=== PATIENT | female | born 1990 | race African-American/Black ===

== ENCOUNTER 2019-02-13 09:22 | Emergency (ER) | payer OTHER, SELFPAY ==
[2019-02-13 09:25] VITALS: BP 113/68; PULSE 66; RESP 13; TEMP 36.9; O2SAT 100
[2019-02-13 10:46] LABS: Add Manual Diff / Slide Review NO; Basophils Absolute Auto 0 /uL (0-100); Basophils Percent Auto 0.6 % (0-2); Eosinophils Absolute Auto 100 /uL (0-450); Eosinophils Percent Auto 1.3 % (2-4); Hematocrit 39.5 % (36-46); Hemoglobin 13.4 g/dL (12.0-16.0); Lymphocytes Absolute Auto 1800 /uL (1100-4500); Lymphocytes Percent Auto 26.9 % (25-40); Mean Corpuscular HGB Conc 33.9 % (30-36); Mean Corpuscular Hemoglobin 29.1 PG (26-34); Monocytes Absolute Auto 300 /uL (0-900); Monocytes Percent Auto 4.7 % (3-14); Neutrophils Absolute Auto 4500 /uL (1500-7000); Neutrophils Percent Auto 66.5 % (50-75); Platelet Count 247 X10^3/uL (150-400); Red Blood Cell Count 4.59 X10^6/uL (4.0-5.2); White Blood Cell Count 6.7 X10^3/uL (4.5-11.0)
--- NOTE | 2019-02-13 10:52 | ED_ITS ---
HPI - Anxiety General Chief Complaint: Anxiety Stated Complaint: mental issues Time Seen by Provider: 02/13/19 10:52 Source: patient Mode of arrival: ambulatory Limitations: no limitations History of Present Illness HPI narrative: Patient is a 28-year-old female who presents to her [facility] with anxiety. She says she really even been able to functions since December she has been to the doctor every week for the last 1 month for UTI and off fibroids. She is overwhelmed unable to sleep at night. Last night she had thoughts of hurting herself. No real specific plan she just can't stop thinking about it. She has those thoughts this morning as well but actively denies suicidal thoughts. She says she was on depression medication however she stopped taking it. She was seeing a counselor but did not think it was helping. MD complaint: anxiety Severity: moderate Related Data Home Medications Medication Instructions Recorded Confirmed ciprofloxacin HCl 500 mg PO [id number] 02/13/19 02/13/19 diphenoxylate-atropine 1 tab PO QID PRN 02/13/19 02/13/19 metronidazole 500 mg PO BID 02/13/19 02/13/19 ondansetron 4 mg PO Q6H PRN 02/13/19 02/13/19 Previous Rx's Medication Instructions Recorded lorazepam [Ativan] 1 mg SL BEDTIME PRN #2 tab 02/13/19 Review of Systems Review of Systems Narrative: GENERAL: Denies chills, fatigue, malaise, fever, sweats, travel HEENT: Denies sinus pain, ear pain, sore throat, difficulty swallowing, neck pain RESPIRATORY: Denies dyspnea, cough, wheezing, hemoptysis, sputum. CARDIOVASCULAR: Denies chest pain, palpitations, orthopnea, edema GASTROINTESTINAL: Denies nausea, vomiting, abdominal pain, diarrhea, constipation, melena. : Denies dysuria, frequency, incontinence, hematuria, urinary retention, flank pain. MUSCULOSKELETAL: Denies weakness, joint pain, or bony pain SKIN: No rash, no erythema, no pruritus NEUROLOGIC: Denies weakness, dizziness, headache, numbness, change in speech, confusion PSYCHIATRIC: See HPI 12 point review of systems is negative except for those stated above and HPI PFSH Medical History Depression (Acute) Social History (Updated 02/13/19 @ 11:16 by Bea Guzman DO) marital status: Social History marital status: Exam Initial Vital Signs Initial Vital Signs: Vital Signs Temperature 98.5 F 02/13/19 09:25 Pulse Rate 66 02/13/19 09:25 Respiratory Rate 13 02/13/19 09:25 Blood Pressure 113/68 02/13/19 09:25 Pulse Oximetry 100 02/13/19 09:25 GENERAL: Tearful slow to respond clear speech and in no acute distress. HEENT: Head atraumatic,EOMI, pupils reactive, CARDIOVASCULAR: Regular rate and rhythm without murmurs, rubs or gallops. RESPIRATORY: Breath sounds equal bilaterally, no wheezes rales or rhonchi. EXTREMITIES: Normal range of motion, no clubbing or edema. Neurovascularly intact NEUROLOGICAL: Alert and oriented x4.Normal gait and speech. Cranial nerves II through XII grossly intact. SKIN: Warm, dry, no laceration, no petechiae, no rashes or lesions. Course Orders Ordered: ED Orders 02/13/19 09:55 EKG-12 Lead Stat 02/13/19 10:00 Urine Drug Screen, Rapid Stat 02/13/19 10:38 Acetaminophen Stat Complete Blood Count AUTO DIFF Stat Comprehensive Metabolic Panel Stat Ethanol (ETOH) Stat 02/13/19 11:19 Consult to [facility] Stat Discontinued Medications Lorazepam (Ativan) 0.5 mg PO NOW ONE Stop: 02/13/19 11:50 Last Admin: 02/13/19 11:58 Dose: 0.5 mg Documented by: BTONER Vital Signs Vital signs: Vital Signs - 8 hr 02/13/19 09:25 02/13/19 12:23 Temperature 98.5 F Pulse Rate 66 72 Respiratory Rate 13 14 Blood Pressure 113/68 Blood Pressure [Left Arm] 106/74 Pulse Oximetry 100 100 MDM - Anxiety Lab Data Attestation: I reviewed the patient's lab results. Result diagrams: 02/13/19 10:38 02/13/19 10:38 Labs: Lab Results 02/13/19 02/13/19 02/13/19 Range/Units 10:00 10:38 10:38 WBC 6.7 (4.5-11.0) X10^3/uL RBC 4.59 (4.0-5.2) X10^6/uL Hgb 13.4 (12.0-16.0) g/dL Hct 39.5 (36-46) % MCV 86.0 (80-100) fL MCH 29.1 (26-34) PG MCHC 33.9 (30-36) % RDW 13.0 (11.6-14.8) % Plt Count 247 (150-400) X10^3/uL Neut % (Auto) 66.5 (50-75) % Lymph % (Auto) 26.9 (25-40) % Shannon % (Auto) 4.7 (3-14) % Eos % (Auto) 1.3 L (2-4) % Baso % (Auto) 0.6 (0-2) % Neut # (Auto) 4500 (6228-7141) /uL Lymph # (Auto) 1800 (7953-9909) /uL Shannon # (Auto) 300 (0-900) /uL Eos # (Auto) 100 (0-450) /uL Baso # (Auto) 0 (0-100) /uL Sodium 139 (137-145) mmol/L Potassium 4.0 (3.4-5.1) mmol/L Chloride 104 (98-107) mmol/L Carbon Dioxide 24 (22-32) mmol/L BUN 13 (7-17) mg/dL Creatinine 0.70 (0.52-1.04) mg/dL Estimated GFR > 60.0 (>60) mL/min BUN/Creatinine Ratio 18.6 (6-22) Glucose 91 (70-100) mg/dL Calcium 9.4 (8.4-10.2) mg/dL Total Bilirubin 0.7 (0.2-1.3) mg/dL AST 22 (14-36) IU/L ALT 18 (9-52) IU/L Alkaline Phosphatase 57 (38-126) U/L Total Protein 7.8 (6.3-8.2) g/dL Albumin 4.4 (3.5-5.0) g/dL Globulin 3.4 (1.7-4.1) g/dL Albumin/Globulin Ratio 1.3 (1.0-2.8) Urine Opiates Screen Negative (Negative) Ur Oxycodone Screen Negative (Negative) Urine Methadone Screen Negative (Negative) Acetaminophen < 10 L (10-30) ug/mL Ur Barbiturates Screen Negative (Negative) U Tricyclic Antidepress Negative (Negative) Ur Phencyclidine Scrn Negative (Negative) Ur Amphetamines Screen Negative (Negative) U Methamphetamines Scrn Negative (Negative) Ur MDMA Scrn (Ecstasy) Negative (Negative) U Benzodiazepines Scrn Negative (Negative) Urine Cocaine Screen Negative (Negative) U Marijuana (THC) Screen Negative (Negative) Ethyl Alcohol < 10 ( - 10) mg/dL MDM Narrative Medical decision making narrative: The patient is not actively suicidal. She is given resources for [facility] in other areas. She did start having some anxiety and difficulty breathing she was given Ativan in the emergency department and seem to help her. We discussed Ativan at night to help her get some sleep because she is not sleeping. I will give her 2 tablets. She has excellent support her is very involved. has to work a lot this week brother is coming into town today to help out. Discharge Plan Departure Patient Disposition: Home Clinical Impression: Acute anxiety Discharge Date/Time: 02/13/19 12:47 Instructions: Anxiety Disorders, Anxiety and Panic Attacks (Alternative Therapy) Activity Restrictions/Additional Instructions: *You have been diagnosed with anxiety *What to do: Please see resources If you are feeling suicidal or having suicidal thoughts: Call: Suicide Hotline: Visit: www.[facility] Text: 373101 *Continue to take medications as directed Ativan 1 mg at nighttime if needed for sleeping *Follow up with your primary care provider in 2-3 days *Return to ER if you should have suicidal thoughts severe anxiety or any new, worsening or concerning symptoms Prescriptions: New lorazepam [Ativan] 1 mg tablet 1 mg SL BEDTIME PRN (Reason: anxiety) Qty: 2 RF: 0 No Action diphenoxylate-atropine 2.5-0.025 mg tablet 1 tab PO QID PRN (Reason: Diarrhea) RF: 0 metronidazole 500 mg tablet 500 mg PO BID RF: 0 ciprofloxacin HCl 500 mg tablet 500 mg PO [id number] RF: 0 ondansetron 4 mg tablet,disintegrating 4 mg PO Q6H PRN (Reason: Nausea And Vomiting) RF: 0 Referrals: Nathalia Cormier MD [Primary Care Provider] -
[2019-02-13 10:59] LABS: Acetaminophen < 10 ug/mL (10-30); Alanine Aminotransferase 18 IU/L (9-52); Albumin 4.4 g/dL (3.5-5.0); Albumin Globulin Ratio 1.3 (1.0-2.8); Alkaline Phosphatase 57 U/L (38-126); Aspartate Aminotransferase 22 IU/L (14-36); BUN Creatinine Ratio 18.6 (6-22); Bilirubin Total 0.7 mg/dL (0.2-1.3); Blood Urea Nitrogen 13 mg/dL (7-17); Calcium 9.4 mg/dL (8.4-10.2); Carbon Dioxide 24 mmol/L (22-32); Chloride 104 mmol/L (98-107); Estimated Glomerular Filt Rate > 60.0 mL/min (>60); Ethanol (ETOH) < 10 mg/dL; Globulin 3.4 g/dL (1.7-4.1); Glucose 91 mg/dL (70-100); HEMOLYSIS < 15 (0-50); Sodium 139 mmol/L (137-145); Total Protein 7.8 g/dL (6.3-8.2)
[2019-02-13 11:17] LABS: Urine Amphetamines Negative (Negative); Urine Barbiturates Negative (Negative); Urine Benzodiazepines Negative (Negative); Urine Cocaine Negative (Negative); Urine MDMA Negative (Negative); Urine Methadone Negative (Negative); Urine Methamphetamines Negative (Negative); Urine Morphine/Opi cutoff 2000 Negative (Negative); Urine Oxycodone Negative (Negative); Urine Phencyclidine Negative (Negative); Urine Tetrahydrocannabinol Negative (Negative); Urine Tricyclic Antidepressant Negative (Negative)
[2019-02-13] MEDS: LORazepam 0.5 MG TABLET PO (11:58)
[2019-02-13 12:23] VITALS: BP 106/74; PULSE 72; RESP 14; O2SAT 100
--- NOTE | 2019-02-13 12:38 | CM.DPNOTE ---
spoke to patient - who was a & O x 4, calm and appropriate in manner and speech - and about patient's stated current anxiety... Although has had a passing thought of SI - no real plan or desire considered. Pt. expressed a desire for anxiety management and counselling. Both felt the anxiety was due to some recent health issues (UTI and questionable mammogram results), husbands [employer] career/deployment, and challenging family dynamics with her mother.. Provided patient and with resource sheet (she has seen a [facility] counselor both in [place] and [place]), informed them of [facility] - gave hand-out, and discussed the possibility of Dr.s Howard as an option. The verbalized their understanding of the various choices and denied further need. Nurse Lori and Dr. Guzman updated. Neither had further need/concern.
== END 2019-02-13 12:47 | disposition home or self-care (01) ==
PROVIDERS: Emergency Provider Emergency Medicine; PCP Family Medicine
DX: F41.9 Anxiety disorder, unspecified (principal)
CPT/HCPCS: 80053; 80305; 80320; 80329; 85025; 93005; 93010; 99282; 99284; G0480